=== PATIENT | female | born 1965 | race Caucasian/White ===

== ENCOUNTER 2018-08-19 11:55 | Observation (INO) | payer OTHER ==
[2018-08-19] MEDS ORDERED: Ondansetron 4 MG/2 ML SDV IVPUSH ONE (12:26)
[2018-08-19] MEDS ORDERED: Sodium Chloride 0.9% 1,000 ML IV ONE (12:26)
[2018-08-19] MEDS ORDERED: Prochlorperazine 10 MG/2 ML SDV IV ONE (12:28)
[2018-08-19 12:56] LABS: CHLORIDE,CL 97 mmol/L (98-107); SODIUM,NA 137 mmol/L (136-145)
[2018-08-19 13:01] LABS: ANION GAP 20.6 mmol/L (10-20)
--- NOTE | 2018-08-19 13:12 | CR ---
[id number] RAD/RAD Abd Flat and Upright 2V EXAM: RAD Abd Flat and Upright 2V INDICATION: ABDOMINAL PAIN. COMPARISON: None. DISCUSSION: Left ureteral stent in place. No abnormal opacities adjacent to the stent. Multiple vascular calcifications in the pelvis. Postsurgical change in the right upper quadrant. Surgical clip left of midline at the level of L3-4, nonspecific and possibly a dropped clip from prior cholecystectomy. Unobstructed bowel gas pattern. No pneumatosis or pneumoperitoneum. IMPRESSION: As above. Nehemiah Boone MD 08/19/18 [id number] Thank you for allowing us to participate in the care of your patient.
[2018-08-19] MEDS ORDERED: Sodium Chloride 0.9% with KCl 1,000 ML IV SCH (13:45)
[2018-08-19] MEDS ORDERED: Prochlorperazine 5 MG Tab PO PRN (13:45)
[2018-08-19] MEDS ORDERED: Ondansetron 4 MG/2 ML SDV IVPUSH PRN (13:45)
[2018-08-19] MEDS ORDERED: Acetaminophen 500 MG Tab PO PRN (13:54)
[2018-08-19] MEDS ORDERED: Loperamide 2 MG Cap PO PRN (13:54)
[2018-08-19] MEDS ORDERED: Ibuprofen 200 MG Tab PO PRN (14:01)
--- NOTE | 2018-08-19 14:09 | EDM.PDOC ---
ED HPI GENERAL MEDICAL PROBLEM - General Chief Complaint: Gastrointestinal Problem Stated Complaint: NAUSEA,WEAK Time Seen by Provider: 08/19/18 12:00 Source of Information: Reports: Patient History Limitations: Reports: No Limitations - History of Present Illness INITIAL COMMENTS - FREE TEXT/NARRATIVE: PtKevin presents to ER with complaints of severe nausea, vomiting, and diarrhea since having chemotherapy last week for metastatic colon CA. She states that she has it every 2 weeks, and is due to have it again next Sunday. She states that she is profoundly weak, fatigued, and nauseated. She has been taking oral compazine and zofran ODT. She has also been taking loperamine for diarrhea. She denies any fever or chills. No chest pain or shortness of breath. She denies any focal abdominal pain and complains of diffuse GI discomfort from nausea and vomiting. Dominique Perrin is the patient's PCP. Onset Date: 08/12/18 Duration: Constant Location: Reports: Abdomen, Generalized Quality: Reports: Dull Associated Symptoms: Reports: Malaise, Nausea/Vomiting, Weakness. Denies: Fever /Chills, Rash Lower Abdomen Pain Score (Numeric/FACES): 6 - Related Data Allergies Allergy/AdvReac Type Severity Reaction Status Date / Time shellfish derived Allergy Severe Anaphylactic Verified 08/19/18 13:29 Shock meperidine [From Demerol] AdvReac Nausea Verified 08/19/18 13:27 morphine AdvReac Vomiting Verified 08/19/18 13:29 oxycodone AdvReac Indigestion Verified 08/19/18 13:27 Home Meds: Home Meds Acetaminophen 1,000 mg PO Q6HR PRN 08/19/18 [History] DULoxetine [Cymbalta] 60 mg PO DAILY 08/19/18 [History] Ibuprofen [Advil] 200 - 400 mg PO Q6HR PRN 08/19/18 [History] Loperamide [Imodium] 4 mg PO Q6H PRN 08/19/18 [History] Ondansetron [Zofran ODT] 8 mg PO Q8HR PRN 08/19/18 [History] Prochlorperazine Maleate [Compazine] 10 mg PO Q6HR PRN 08/19/18 [History] Past Medical History Cardiovascular History: Reports: SOB on Exertion Respiratory History: Reports: Asthma Gastrointestinal History: Reports: Other (See Below) Other Gastrointestinal History: Upper abdominal pain. Colon cancer stage 3 Genitourinary History: Reports: Other (See Below) Other Genitourinary History: Obstruction of left ureter Neurological History: Reports: Other (See Below) Other Neuro History: Chemo induced neuropathy Psychiatric History: Reports: Anxiety Endocrine/Metabolic History: Reports: Other (See Below) Other Endocrine/Metabolic History: Hypomagnesemia Hematologic History: Reports: Iron Deficiency Oncologic (Cancer) History: Reports: Colon, Metastatic Social & Family History - Family History Family Medical History: Unobtainable - Tobacco Use Smoking Status *Q: Former Smoker Years of Tobacco use: 15 Used Tobacco, but Quit: Yes Month/Year Tobacco Last Used: 1997 Second Hand Smoke Exposure: No - Caffeine Use Caffeine Use: Reports: Coffee, Soda - Recreational Drug Use Recreational Drug Use: No ED ROS GENERAL - Review of Systems Review Of Systems: See Below Constitutional: Reports: Malaise, Weakness, Fatigue, Decreased Appetite HEENT: Reports: No Symptoms Respiratory: Reports: No Symptoms Cardiovascular: Reports: No Symptoms Endocrine: Reports: No Symptoms GI/Abdominal: Reports: Anorexia, Diarrhea, Decreased Appetite, Nausea, Vomiting. Denies: Abdominal Pain, Black Stool, Bloody Stool, Difficulty Swallowing, Hematemesis, Hematochezia, Melena : Reports: No Symptoms Musculoskeletal: Reports: Muscle Pain Skin: Reports: Pallor Neurological: Reports: No Symptoms Psychiatric: Reports: No Symptoms Hematologic/Lymphatic: Reports: No Symptoms ED EXAM, GENERAL - Physical Exam Exam: See Below Exam Limited By: No Limitations General Appearance: Alert, WD/WN, No Apparent Distress Eye Exam: Bilateral Eye: EOMI, PERRL Nose: Normal Inspection, Normal Mucosa Throat/Mouth: Normal Inspection, Normal Lips, Normal Teeth, Normal Gums, Normal Oropharynx, Normal Voice, No Airway Compromise Head: Atraumatic, Normocephalic Neck: Normal Inspection, Supple, Non-Tender, Full Range of Motion Respiratory/Chest: No Respiratory Distress, Lungs Clear, Normal Breath Sounds, No Accessory Muscle Use, Chest Non-Tender Cardiovascular: Normal Peripheral Pulses, Regular Rate, Rhythm, No Edema, No Gallop, No JVD, No Murmur Peripheral Pulses: 4+: Radial (L) GI/Abdominal: Normal Bowel Sounds, Soft, Non-Tender, No Organomegaly, No Distention, No Mass (Female) Exam: Deferred Rectal (Female) Exam: Deferred Back Exam: Normal Inspection, Full Range of Motion Extremities: Normal Inspection, Normal Range of Motion, Non-Tender, No Pedal Edema, Normal Capillary Refill Neurological: Alert, Oriented, CN II-XII Intact, Normal Cognition, Normal Gait, Normal Reflexes, No Motor/Sensory Deficits Psychiatric: Normal Affect, Normal Mood Skin Exam: Warm, Dry, Intact, No Rash, Pallor Lymphatic: No Adenopathy Course - Vital Signs Last Recorded V/S: Last Vital Signs Temp 35.7 C 08/19/18 12:00 Pulse 121 H 08/19/18 12:00 Resp 20 08/19/18 12:00 BP 122/88 08/19/18 12:00 Pulse Ox 97 08/19/18 12:00 - Orders/Labs/Meds Orders: Active Orders 24 hr Category Date Time Status Implanted Port Access [RC] 08,20 Care 08/19/18 12:25 Active CULTURE BLOOD [BC] Stat Lab 08/19/18 12:25 Ordered CULTURE BLOOD [BC] Stat Lab 08/19/18 12:25 Ordered Blood Culture x2 Reflex Set [OM.PC] Stat Oth 08/19/18 12:25 Ordered Medication Orders Acetaminophen (Tylenol Extra Strength) 1,000 mg PO Q6HR PRN PRN Reason: Pain Duloxetine HCl (Cymbalta) 60 mg PO DAILY [facility]OS[facility] Enoxaparin Sodium (Lovenox) 40 mg SUBCUT BEDTIME [facility] Potassium Chloride/Sodium Chloride (Normal Saline With 40 Meq Kcl) 1,000 mls @ 250 mls/hr IV ASDIRECTED [facility] Ibuprofen (Motrin) 400 mg PO Q4H PRN PRN Reason: Pain/Fever Loperamide HCl (Imodium) 4 mg PO Q6H PRN PRN Reason: Diarrhea Ondansetron HCl (Zofran) 4 mg IVPUSH Q6H PRN PRN Reason: Nausea Prochlorperazine Maleate (Compazine) 5 mg PO Q6H PRN PRN Reason: Nausea/Vomiting Labs: Laboratory Tests 08/19/18 08/19/18 08/19/18 Range/Units 12:20 12:20 12:20 WBC 4.4 (4.0-10.0) x10^3/uL RBC 5.20 (4.00-5.50) x10^6/uL Hgb 15.5 D (12.0-16.0) g/dL Hct 44.1 (33.0-47.0) % MCV 84.8 (78.0-93.0) fL MCH 29.8 (26.0-32.0) pg MCHC 35.1 (32.0-36.0) g/dL RDW Coeff of Myranda 14.6 (10.0-15.0) % Plt Count 353 (130-400) x10^3/uL Neut % (Auto) 55.1 (50.0-80.0) % Lymph % (Auto) 37.8 (25.0-50.0) % [place] % (Auto) 3.6 (2.0-11.0) % Eos % (Auto) 3.0 (0.0-4.0) % Baso % (Auto) 0.5 (0.2-1.2) % PT 11.0 (10.0-12.8) SEC INR 1.0 L (2.0-3.5) Sodium 137 (136-145) mmol/L Potassium 2.6 L* (3.5-5.1) mmol/L Chloride 97 L (98-107) mmol/L Carbon Dioxide 22 (21-32) mmol/L Anion Gap 20.6 H (10-20) mmol/L BUN 45 H (7-18) mg/dL Creatinine 1.8 H (0.55-1.02) mg/dL Est Cr Clr Drug Dosing TNP Estimated GFR (MDRD) 30 Glucose 184 H (74-106) mg/dL Lactic Acid (0.4-2.0) mmol/L Calcium 9.2 (8.5-10.1) mg/dL Corrected Calcium 8.88 (8.5-10.1) mg/dL Phosphorus 4.3 (2.6-4.7) mg/dL Magnesium 2.3 (1.8-2.4) mg/dL Total Bilirubin 1.2 H (0.2-1.0) mg/dL AST 26 (15-37) U/L ALT 48 (14-59) U/L Alkaline Phosphatase 138 H (46-116) U/L C-Reactive Protein 0.9 (<=0.9) mg/dL Total Protein 8.9 H (6.4-8.2) g/dL Albumin 4.4 (3.4-5.0) g/dL Globulin 4.5 Albumin/Globulin Ratio 0.98 Amylase 307 H (25-115) U/L 08/19/18 Range/Units 12:20 WBC (4.0-10.0) x10^3/uL RBC (4.00-5.50) x10^6/uL Hgb (12.0-16.0) g/dL Hct (33.0-47.0) % MCV (78.0-93.0) fL MCH (26.0-32.0) pg MCHC (32.0-36.0) g/dL RDW Coeff of Myranda (10.0-15.0) % Plt Count (130-400) x10^3/uL Neut % (Auto) (50.0-80.0) % Lymph % (Auto) (25.0-50.0) % [place] % (Auto) (2.0-11.0) % Eos % (Auto) (0.0-4.0) % Baso % (Auto) (0.2-1.2) % PT (10.0-12.8) SEC INR (2.0-3.5) Sodium (136-145) mmol/L Potassium (3.5-5.1) mmol/L Chloride (98-107) mmol/L Carbon Dioxide (21-32) mmol/L Anion Gap (10-20) mmol/L BUN (7-18) mg/dL Creatinine (0.55-1.02) mg/dL Est Cr Clr Drug Dosing Estimated GFR (MDRD) Glucose (74-106) mg/dL Lactic Acid 4.8 H* (0.4-2.0) mmol/L Calcium (8.5-10.1) mg/dL Corrected Calcium (8.5-10.1) mg/dL Phosphorus (2.6-4.7) mg/dL Magnesium (1.8-2.4) mg/dL Total Bilirubin (0.2-1.0) mg/dL AST (15-37) U/L ALT (14-59) U/L Alkaline Phosphatase (46-116) U/L C-Reactive Protein (<=0.9) mg/dL Total Protein (6.4-8.2) g/dL Albumin (3.4-5.0) g/dL Globulin Albumin/Globulin Ratio Amylase (25-115) U/L Meds: Medications Generic Name Dose Route Start Last Admin Trade Name Freq PRN Reason Stop Dose Admin Acetaminophen 1,000 mg 08/19/18 13:54 Tylenol Extra Strength PO Q6HR PRN Pain Duloxetine HCl 60 mg 08/20/18 08:00 Cymbalta PO DAILY REPLACED BY [facility] Enoxaparin Sodium 40 mg 08/19/18 20:00 Lovenox SUBCUT BEDTIME REPLACED BY [facility] Potassium Chloride/Sodium Chloride 1,000 mls @ 250 mls/hr 08/19/18 13:45 Normal Saline With 40 Meq Kcl IV ASDIRECTED REPLACED BY [facility] Ibuprofen 400 mg 08/19/18 14:01 Motrin PO Q4H PRN Pain/Fever Loperamide HCl 4 mg 08/19/18 13:54 Imodium PO Q6H PRN Diarrhea Ondansetron HCl 4 mg 08/19/18 13:45 Zofran IVPUSH Q6H PRN Nausea Prochlorperazine Maleate 5 mg 08/19/18 13:45 Compazine PO Q6H PRN Nausea/Vomiting Discontinued Medications Generic Name Dose Route Start Last Admin Trade Name Oliverioq PRN Reason Stop Dose Admin Sodium Chloride 1,000 mls @ 1,000 mls/hr 08/19/18 12:26 08/19/18 12:25 Normal Saline IV 08/19/18 13:25 1,000 mls/hr .BOLUS ONE Administration Ondansetron HCl 4 mg 08/19/18 12:26 08/19/18 12:52 Zofran IVPUSH 08/19/18 12:27 4 mg ONETIME ONE Administration Prochlorperazine Edisylate 5 mg 08/19/18 12:28 08/19/18 12:49 Compazine IV 08/19/18 12:29 5 mg ONETIME ONE Administration - Radiology Interpretation Free Text/Narrative:: F/U abdominal series obtained no obstructive process or obvious ileus noted. Departure - Departure Time of Disposition: 13:30 Disposition: Refer to Observation Clinical Impression: Chemotherapy-induced nausea and vomiting, Dehydration, Hypokalemia, gastrointestinal losses, AYESHA (acute kidney injury), Prerenal azotemia - Discharge Information - Problem List Review Problem List Initiated/Reviewed/Updated: Yes - My Orders Last 24 Hours: My Active Orders 08/19/18 12:25 Implanted Port Access [RC] 08,20 CULTURE BLOOD [BC] Stat CULTURE BLOOD [BC] Stat Blood Culture x2 Reflex Set [OM.PC] Stat - Assessment/Plan Admission H&P: Please use this note as an admission H&P Last 24 Hours: My Active Orders 08/19/18 12:25 Implanted Port Access [RC] 08,20 CULTURE BLOOD [BC] Stat CULTURE BLOOD [BC] Stat Blood Culture x2 Reflex Set [OM.PC] Stat Plan: Pt. appears quite ill and uncomfortable. Her lactate level is elevated likely secondary to the dehydration and decreased tissue perfusion. Will hold antibiotics at this time as she is afebrile and has no other symptoms of infection. Will trend her lactate in 6 hours. Repeat BMP in 6 hours as well. Pt. was given a liter of NS in ER. She will be started on NS with 40meq KCL at 250ml/hr. She will be kept on clear liquids today. Continue zofran and compazine IV for nausea/vomiting. Pt. is sensitive to opiates. She has been taking ibuprofen for pain at home. Will continue this as needed for now. Start lovenox 30mg QD for DVT prophylaxis (renally adjusted) Pt. is a code 1. Her [id number] is Nestor Lopez [facility] who is covering the ER tonight. Will discuss case with him. Likely he will want me to be contacted for orders tonight which is fine. I did discuss the case with Dr. Linares and she will assume care in the AM if she has not sufficiently improved enough for discharge. All questions were answered.
[2018-08-19 18:20] LABS: ANION GAP 14.4 mmol/L (10-20)
[2018-08-19] MEDS: Dextrose 5%-0.9% NaCl with KCl 1,000 ML IV SCH (19:34)
[2018-08-19] MEDS ORDERED: Enoxaparin 40 MG/0.4 ML Syringe SUBCUT SCH (20:00)
[2018-08-20] MEDS: Dextrose 5%-0.9% NaCl with KCl 1,000 ML IV SCH ×2 (03:27→11:38)
--- NOTE | 2018-08-20 07:28 | PCM.PN ---
- General Info Date of Service: 08/20/18 Admission Dx/Problem (Free Text): Pt. states that she is feeling much better. She has been tolerating clear liquid since midnight. She did vomit after consuming a large amount of water and juice last evening but has been OK since then. No fever or chills. No chest pain or shortness of breath. Nausea and vomiting has been controlled with Zofran. Denies any recurrent diarrhea. No skin rashes. Denies any headache. She has not been complaining of any pain. She has been able to get up to the bathroom on her own. Functional Status: Reports: Pain Controlled - Review of Systems General: Reports: No Symptoms HEENT: Reports: No Symptoms Pulmonary: Reports: No Symptoms Cardiovascular: Reports: No Symptoms Gastrointestinal: Reports: No Symptoms Genitourinary: Reports: No Symptoms Musculoskeletal: Reports: No Symptoms Skin: Reports: No Symptoms Neurological: Reports: No Symptoms Psychiatric: Reports: No Symptoms - Patient Data Vitals - Most Recent: Last Vital Signs Temp 36.9 C 08/20/18 06:00 Pulse 71 08/20/18 06:00 Resp 16 08/20/18 06:00 BP 88/56 L 08/20/18 06:00 Pulse Ox 98 08/20/18 06:00 Weight - Most Recent: 78.018 kg I&O - Last 24 Hours: Intake & Output 08/19/18 08/20/18 08/20/18 22:59 06:59 14:59 Intake Total 1000 Output Total 1000 Balance 0 Lab Results Last 24 Hours: Laboratory Results - last 24 hr 08/19/18 08/19/18 08/19/18 Range/Units 12:20 12:20 12:20 WBC 4.4 (4.0-10.0) x10^3/uL RBC 5.20 (4.00-5.50) x10^6/uL Hgb 15.5 D (12.0-16.0) g/dL Hct 44.1 (33.0-47.0) % MCV 84.8 (78.0-93.0) fL MCH 29.8 (26.0-32.0) pg MCHC 35.1 (32.0-36.0) g/dL RDW Coeff of Myranda 14.6 (10.0-15.0) % Plt Count 353 (130-400) x10^3/uL Neut % (Auto) 55.1 (50.0-80.0) % Lymph % (Auto) 37.8 (25.0-50.0) % [place] % (Auto) 3.6 (2.0-11.0) % Eos % (Auto) 3.0 (0.0-4.0) % Baso % (Auto) 0.5 (0.2-1.2) % PT 11.0 (10.0-12.8) SEC INR 1.0 L (2.0-3.5) Sodium 137 (136-145) mmol/L Potassium 2.6 L* (3.5-5.1) mmol/L Chloride 97 L (98-107) mmol/L Carbon Dioxide 22 (21-32) mmol/L Anion Gap 20.6 H (10-20) mmol/L BUN 45 H (7-18) mg/dL Creatinine 1.8 H (0.55-1.02) mg/dL Est Cr Clr Drug Dosing TNP Estimated GFR (MDRD) 30 Glucose 184 H (74-106) mg/dL Lactic Acid (0.4-2.0) mmol/L Calcium 9.2 (8.5-10.1) mg/dL Corrected Calcium 8.88 (8.5-10.1) mg/dL Phosphorus 4.3 (2.6-4.7) mg/dL Magnesium 2.3 (1.8-2.4) mg/dL Total Bilirubin 1.2 H (0.2-1.0) mg/dL AST 26 (15-37) U/L ALT 48 (14-59) U/L Alkaline Phosphatase 138 H (46-116) U/L C-Reactive Protein 0.9 (<=0.9) mg/dL Total Protein 8.9 H (6.4-8.2) g/dL Albumin 4.4 (3.4-5.0) g/dL Globulin 4.5 Albumin/Globulin Ratio 0.98 Amylase 307 H (25-115) U/L 08/19/18 08/19/18 08/19/18 Range/Units 12:20 17:48 17:48 WBC (4.0-10.0) x10^3/uL RBC (4.00-5.50) x10^6/uL Hgb (12.0-16.0) g/dL Hct (33.0-47.0) % MCV (78.0-93.0) fL MCH (26.0-32.0) pg MCHC (32.0-36.0) g/dL RDW Coeff of Myranda (10.0-15.0) % Plt Count (130-400) x10^3/uL Neut % (Auto) (50.0-80.0) % Lymph % (Auto) (25.0-50.0) % [place] % (Auto) (2.0-11.0) % Eos % (Auto) (0.0-4.0) % Baso % (Auto) (0.2-1.2) % PT (10.0-12.8) SEC INR (2.0-3.5) Sodium 140 (136-145) mmol/L Potassium 3.4 L (3.5-5.1) mmol/L Chloride 105 (98-107) mmol/L Carbon Dioxide 24 (21-32) mmol/L Anion Gap 14.4 (10-20) mmol/L BUN 34 H (7-18) mg/dL Creatinine 1.2 H (0.55-1.02) mg/dL Est Cr Clr Drug Dosing 51.92 Estimated GFR (MDRD) 47 Glucose 99 (74-106) mg/dL Lactic Acid 4.8 H* 1.1 (0.4-2.0) mmol/L Calcium 8.2 L (8.5-10.1) mg/dL Corrected Calcium (8.5-10.1) mg/dL Phosphorus (2.6-4.7) mg/dL Magnesium (1.8-2.4) mg/dL Total Bilirubin (0.2-1.0) mg/dL AST (15-37) U/L ALT (14-59) U/L Alkaline Phosphatase (46-116) U/L C-Reactive Protein (<=0.9) mg/dL Total Protein (6.4-8.2) g/dL Albumin (3.4-5.0) g/dL Globulin Albumin/Globulin Ratio Amylase (25-115) U/L Med Orders - Current: Current Medications Acetaminophen (Tylenol Extra Strength) 1,000 mg PO Q6HR PRN PRN Reason: Pain Duloxetine HCl (Cymbalta) 60 mg PO DAILY [facility] Enoxaparin Sodium (Lovenox) 40 mg SUBCUT BEDTIME [facility] Last Admin: 08/19/18 19:42 Dose: 40 mg Potassium Chloride/Dextrose/Sod Cl (D5 Ns With 20 Meq Kcl) 1,000 mls @ 125 mls/ hr IV ASDIRECTED [facility] Last Admin: 08/20/18 03:27 Dose: 125 mls/hr Ibuprofen (Motrin) 400 mg PO Q4H PRN PRN Reason: Pain/Fever Loperamide HCl (Imodium) 4 mg PO Q6H PRN PRN Reason: Diarrhea Ondansetron HCl (Zofran) 4 mg IVPUSH Q6H PRN PRN Reason: Nausea Last Admin: 08/19/18 21:45 Dose: 4 mg Prochlorperazine Maleate (Compazine) 5 mg PO Q6H PRN PRN Reason: Nausea/Vomiting Discontinued Medications Sodium Chloride (Normal Saline) 1,000 mls @ 1,000 mls/hr IV .BOLUS ONE Stop: 08/19/18 13:25 Last Admin: 08/19/18 12:25 Dose: 1,000 mls/hr Potassium Chloride/Sodium Chloride (Normal Saline With 40 Meq Kcl) 1,000 mls @ 250 [facility] Admin: 08/19/18 14:30 Dose: 250 mls/hr Ondansetron HCl (Zofran) 4 mg IVPUSH ONETIME ONE Stop: 08/19/18 12:27 Last Admin: 08/19/18 12:52 Dose: 4 mg Prochlorperazine Edisylate (Compazine) 5 mg IV ONETIME ONE Stop: 08/19/18 12:29 Last Admin: 08/19/18 12:49 Dose: 5 mg - Exam General: Alert, Oriented Lungs: Clear to Auscultation, Normal Respiratory Effort Cardiovascular: Regular Rate, Regular Rhythm GI/Abdominal Exam: Normal Bowel Sounds, Soft, Non-Tender, No Organomegaly, No Distention, No Mass (Female) Exam: Deferred Back Exam: Normal Inspection, Full Range of Motion Extremities: Normal Inspection, Normal Range of Motion, Non-Tender, No Pedal Edema, Normal Capillary Refill Peripheral Pulses: 4+: Radial (L) Skin: Warm, Dry, Intact Neurological: No New Focal Deficit Psy/Mental Status: Alert, Normal Affect, Normal Mood - Problem List Review Problem List Initiated/Reviewed/Updated: Yes - My Orders Last 24 Hours: My Active Orders 08/19/18 12:25 Implanted Port Access [RC] 08,20 CULTURE BLOOD [BC] Stat CULTURE BLOOD [BC] Stat Blood Culture x2 Reflex Set [OM.PC] Stat 08/19/18 13:10 Patient Status [ADT] Routine 08/19/18 13:43 Intake and Output [RC] 06,18 Up With Assistance [RC] 08,20 Vital Signs [RC] 06,10,14,18,22,02 Code Status [Resuscitation Status] Routine 08/19/18 13:45 Ondansetron [Zofran] 4 mg IVPUSH Q6H PRN Prochlorperazine [Compazine] 5 mg PO Q6H PRN 08/19/18 13:54 Acetaminophen [Tylenol Extra Strength] 1,000 mg PO Q6HR PRN Loperamide [Imodium] 4 mg PO Q6H PRN 08/19/18 14:01 Ibuprofen [Motrin] 400 mg PO Q4H PRN 08/19/18 18:45 Dextrose 5%-0.9% NaCl with KCl [D5 NS with 20 mEq KCl] 1,000 ml IV ASDIRECTED 08/19/18 20:00 Enoxaparin [Lovenox] 40 mg SUBCUT BEDTIME 08/19/18 Dinner Clear Liquid Diet [DIET] 08/20/18 05:11 AMYLASE [CHEM] AM COMPREHENSIVE METABOLIC PN,CMP [CHEM] AM LACTIC ACID [CHEM] AM LIPASE [CHEM] AM 08/20/18 07:00 CBC W/O DIFF,HEMOGRAM [HEME] Q3D 08/20/18 08:00 DULoxetine [Cymbalta] 60 mg PO DAILY 08/20/18 Breakfast Full Liquid Diet [DIET] 08/23/18 07:00 CBC W/O DIFF,HEMOGRAM [HEME] Q3D 08/26/18 07:00 CBC W/O DIFF,HEMOGRAM [HEME] Q3D 08/29/18 07:00 CBC W/O DIFF,HEMOGRAM [HEME] Q3D 09/01/18 07:00 CBC W/O DIFF,HEMOGRAM [HEME] Q3D 09/04/18 07:00 CBC W/O DIFF,HEMOGRAM [HEME] Q3D 09/07/18 07:00 CBC W/O DIFF,HEMOGRAM [HEME] Q3D
[2018-08-20 07:53] LABS: ANION GAP 13.7 mmol/L (10-20)
[2018-08-20] MEDS ORDERED: DULoxetine 60 MG Cap PO SCH (08:00)
[2018-08-20 14:25] VITALS: BP 115/64
[2018-08-20] MEDS ORDERED: Loperamide 2 MG Cap PO SCH (18:00)
--- NOTE | 2018-08-20 18:37 | PCM.DCSUM1 ---
Discharge Summary - Hospital Course Free Text/Narrative:: Pt. was admitted the afternoon of 08-19-18 with dehydration secondary to vomiting and diarrhea with AYESHA secondary to chemotherapy. She was initially fluid resuscitated with IV NS and then started on maintenance D5 NS with KCL, as she was quite hypokalemic. Her labs have improved significantly. Her diet was advanced thoughout the day today and she is now tolerating solid foods. Her lactic acid continued to be elevated this AM. It was checked again this afternoon and it was down to 1.9. Potassium level and kidney function has normalized as well. Pt. states that she feels well enough to be discharged. Pt. continues to have diarrhea. She was not receiving her PRN loperamide apparently so this was started. Pt. was advised to continue using the loperamide until her stools normalize. Diagnosis: Stroke: No - Discharge Data Discharge Date: 08/20/18 Discharge Disposition: Home, Self-Care 01 Condition: Good - Discharge Diagnosis/Problem(s) (1) AYESHA (acute kidney injury) SNOMED Code(s): 18797615, 86875888 ICD Code: N17.9 - ACUTE KIDNEY FAILURE, UNSPECIFIED Status: Acute Current Visit: Yes (2) Chemotherapy-induced nausea and vomiting SNOMED Code(s): 37036465 ICD Code: R11.2 - NAUSEA WITH VOMITING, UNSPECIFIED; T45.1X5A - ADVERSE EFFECT OF ANTINEOPLASTIC AND IMMUNOSUP DRUGS, INIT Status: Acute Current Visit: Yes (3) Dehydration SNOMED Code(s): 17653575 ICD Code: E86.0 - DEHYDRATION Status: Acute Current Visit: Yes (4) Hypokalemia, gastrointestinal losses SNOMED Code(s): 45316437 ICD Code: E87.6 - HYPOKALEMIA Status: Acute Current Visit: Yes (5) Prerenal azotemia SNOMED Code(s): 027457155 ICD Code: R79.89 - OTHER SPECIFIED ABNORMAL FINDINGS OF BLOOD CHEMISTRY Status: Acute Current Visit: Yes - Patient Instructions Diet: Regular Diet as Tolerated Activity: As Tolerated Driving: Do Not Drive Showering/Bathing: May Shower - Discharge Plan Home Medications: Home Meds Acetaminophen 1,000 mg PO Q6HR PRN MDD 4000 mg per day 08/19/18 [History] DULoxetine [Cymbalta] 60 mg PO DAILY 08/19/18 [History] Ibuprofen [Advil] 200 - 400 mg PO Q6HR PRN 08/19/18 [History] Loperamide [Imodium] 4 mg PO Q6H PRN MDD 16 mg per day 08/19/18 [History] Ondansetron [Zofran ODT] 8 mg PO Q8HR PRN 08/19/18 [History] Prochlorperazine Maleate [Compazine] 10 mg PO Q6HR PRN 08/19/18 [History] Patient Handouts: Dehydration, Adult, [id number] Forms: ED Department Discharge Referrals: Anamika Perrin, FORECLOSURE SPECIALIST [Primary Care Provider] - - Discharge Summary/Plan Comment DC Time >30 min.: Yes Discharge Summary/Plan Comment: Continue with current medications. Follow-up in clinic with oncology in 10-14 days. Return to ER if you are unable to hold down fluids. - Patient Data Vitals - Most Recent: Last Vital Signs Temp 36.5 C 08/20/18 14:00 Pulse 78 08/20/18 14:00 Resp 18 08/20/18 14:00 BP 115/64 08/20/18 14:00 Pulse Ox 97 08/20/18 14:00 Weight - Most Recent: 78.018 kg I&O - Last 24 hours: Intake & Output 08/20/18 08/20/18 08/20/18 06:59 14:59 22:59 Intake Total 8253 828 4467 Balance 3720 349 6712 Lab Results - Last 24 hrs: Laboratory Results - last 24 hr 08/20/18 08/20/18 08/20/18 Range/Units 06:20 06:20 06:20 WBC 4.6 (4.0-10.0) x10^3/uL RBC 3.82 L (4.00-5.50) x10^6/uL Hgb 11.2 L D (12.0-16.0) g/dL Hct 33.6 (33.0-47.0) % MCV 88.0 D (78.0-93.0) fL MCH 29.3 (26.0-32.0) pg MCHC 33.3 (32.0-36.0) g/dL RDW Coeff of Myranda 14.3 (10.0-15.0) % Plt Count 226 D (130-400) x10^3/uL Sodium 143 (136-145) mmol/L Potassium 3.7 (3.5-5.1) mmol/L Chloride 109 H (98-107) mmol/L Carbon Dioxide 24 (21-32) mmol/L Anion Gap 13.7 (10-20) mmol/L BUN 20 H (7-18) mg/dL Creatinine 1.0 (0.55-1.02) mg/dL Est Cr Clr Drug Dosing 62.31 mL/min Estimated GFR (MDRD) 58 Glucose 134 H (74-106) mg/dL Lactic Acid 2.7 H* (0.4-2.0) mmol/L Calcium 8.5 (8.5-10.1) mg/dL Corrected Calcium 9.14 (8.5-10.1) mg/dL Total Bilirubin 0.9 (0.2-1.0) mg/dL AST 19 (15-37) U/L ALT 32 (14-59) U/L Alkaline Phosphatase 89 (46-116) U/L Total Protein 6.3 L (6.4-8.2) g/dL Albumin 3.2 L (3.4-5.0) g/dL Globulin 3.1 Albumin/Globulin Ratio 1.03 Amylase 129 H (25-115) U/L Lipase 589 H (73-393) U/L 08/20/18 Range/Units 17:36 WBC (4.0-10.0) x10^3/uL RBC (4.00-5.50) x10^6/uL Hgb (12.0-16.0) g/dL Hct (33.0-47.0) % MCV (78.0-93.0) fL MCH (26.0-32.0) pg MCHC (32.0-36.0) g/dL RDW Coeff of Myranda (10.0-15.0) % Plt Count (130-400) x10^3/uL Sodium (136-145) mmol/L Potassium (3.5-5.1) mmol/L Chloride (98-107) mmol/L Carbon Dioxide (21-32) mmol/L Anion Gap (10-20) mmol/L BUN (7-18) mg/dL Creatinine (0.55-1.02) mg/dL Est Cr Clr Drug Dosing mL/min Estimated GFR (MDRD) Glucose (74-106) mg/dL Lactic Acid 1.9 (0.4-2.0) mmol/L Calcium (8.5-10.1) mg/dL Corrected Calcium (8.5-10.1) mg/dL Total Bilirubin (0.2-1.0) mg/dL AST (15-37) U/L ALT (14-59) U/L Alkaline Phosphatase (46-116) U/L Total Protein (6.4-8.2) g/dL Albumin (3.4-5.0) g/dL Globulin Albumin/Globulin Ratio Amylase (25-115) U/L Lipase (73-393) U/L Med Orders - Current: Current Medications Acetaminophen (Tylenol Extra Strength) 1,000 mg PO Q6HR PRN PRN Reason: Pain Duloxetine HCl (Cymbalta) 60 mg PO DAILY [facility] Last Admin: 08/20/18 08:07 Dose: 60 mg Enoxaparin Sodium (Lovenox) 40 mg SUBCUT BEDTIME [facility] Last Admin: 08/19/18 19:42 Dose: 40 mg Potassium Chloride/Dextrose/Sod Cl (D5 Ns With 20 Meq Kcl) 1,000 mls @ 125 mls/ hr IV ASDIRECTED [facility] Last Admin: 08/20/18 11:38 Dose: 125 mls/hr Ibuprofen (Motrin) 400 mg PO Q4H PRN PRN Reason: Pain/Fever Loperamide HCl (Imodium) 4 mg PO Q6H [facility] Last Admin: 08/20/18 17:09 Dose: 4 mg Ondansetron HCl (Zofran) 4 mg IVPUSH Q6H PRN PRN Reason: Nausea Last Admin: 08/19/18 21:45 Dose: 4 mg Prochlorperazine Maleate (Compazine) 5 mg PO Q6H PRN PRN Reason: Nausea/Vomiting Discontinued Medications Sodium Chloride (Normal Saline) 1,000 mls @ 1,000 mls/hr IV .BOLUS ONE Stop: 08/19/18 13:25 Last Admin: 08/19/18 12:25 Dose: 1,000 mls/hr Potassium Chloride/Sodium Chloride (Normal Saline With 40 Meq Kcl) 1,000 mls @ 250 mls/hr IV ASDIRECTED [facility] Last Admin: 08/19/18 14:30 Dose: 250 mls/hr Loperamide HCl (Imodium) 4 mg PO Q6H PRN PRN Reason: Diarrhea Ondansetron HCl (Zofran) 4 mg IVPUSH ONETIME ONE Stop: 08/19/18 12:27 Last Admin: 08/19/18 12:52 Dose: 4 mg Prochlorperazine Edisylate (Compazine) 5 mg IV ONETIME ONE Stop: 08/19/18 12:29 Last Admin: 08/19/18 12:49 Dose: 5 mg
== END 2018-08-20 18:57 | disposition home or self-care (01) ==
LOC: VM.ED 11:55 → VM.MS 13:10
PROVIDERS: ADMIT Physician Assistant; ATTEND Physician Assistant
DX: R11.2 Nausea with vomiting, unspecified (principal); E86.0 Dehydration; T45.1X5A Adverse effect of antineoplastic and immunosuppressive drugs, initial encounter; N17.9 Acute kidney failure, unspecified; E87.6 Hypokalemia; R79.89 Other specified abnormal findings of blood chemistry; Z88.5 Allergy status to narcotic agent; Z91.013 Allergy to seafood
CPT/HCPCS: 36415; 74019; 80048; 80053; 82150; 83605; 83690; 83735; 84100; 85025; 85027; 85610; 86140; 87040; 96361; 96372; 96374; 96375; 96376; 99285; A9270; G0378; J0780; J1642; J1650; J2405; J3480; J7030

== ENCOUNTER 2018-09-06 21:15 | Emergency (ER) | payer OTHER ==
[2018-09-06] MEDS ORDERED: Sodium Chloride 0.9% 10 ML Syringe FLUSH PRN (21:26)
[2018-09-06] MEDS ORDERED: Prochlorperazine 10 MG/2 ML SDV IV ONE (21:26)
[2018-09-06] MEDS ORDERED: diphenhydrAMINE 50 MG/ML SDV IVPUSH ONE (21:27)
[2018-09-06] MEDS ORDERED: Lactated Ringers 1,000 ML IV ONE (21:27)
[2018-09-06 22:11] LABS: CHLORIDE,CL 100 mmol/L (98-107); SODIUM,NA 141 mmol/L (136-145)
[2018-09-06 22:12] LABS: ANION GAP 14.9 mmol/L (10-20)
[2018-09-06] MEDS ORDERED: NS + KCl 20mEq/L 1,000 ML IV SCH (22:30)
--- NOTE | 2018-09-07 07:22 | EDM.PDOC ---
ED HPI GENERAL MEDICAL PROBLEM - General Chief Complaint: Gastrointestinal Problem Stated Complaint: NAUSEATED AND DIARREA Time Seen by Provider: 09/06/18 21:20 Source of Information: Reports: Patient History Limitations: Reports: No Limitations - History of Present Illness INITIAL COMMENTS - FREE TEXT/NARRATIVE: Pt. presents to ER with chemotherapy induced nausea, vomiting, and diarrhea. Pt. states that she had her last chemotherapy session on Sunday. She states that she has been experiencing the symptoms since then. Pt. was admitted to our facility due to chemotherapy induced nausea, vomiting, dehydration, AYESHA and hypokalemia following her last chemo session (August 19). She denies any fever or chills. No chest pain or shortness of breath. Denies any focal abdominal discomfort. No rashes. Onset: Today Onset Date: 09/07/18 Location: Reports: Generalized Associated Symptoms: Reports: Nausea/Vomiting - Related Data Allergies Allergy/AdvReac Type Severity Reaction Status Date / Time shellfish derived Allergy Severe Anaphylactic Verified 09/07/18 00:29 Shock meperidine [From Demerol] AdvReac Nausea Verified 09/07/18 00:29 morphine AdvReac Vomiting Verified 09/07/18 00:29 oxycodone AdvReac Indigestion Verified 09/07/18 00:29 Home Meds: Home Meds Acetaminophen 1,000 mg PO Q6HR PRN MDD 4000 mg per day 08/19/18 [History] DULoxetine [Cymbalta] 60 mg PO DAILY 08/19/18 [History] Ibuprofen [Advil] 200 - 400 mg PO Q6HR PRN 08/19/18 [History] Loperamide [Imodium] 4 mg PO Q6H PRN MDD 16 mg per day 08/19/18 [History] Ondansetron [Zofran ODT] 8 mg PO Q8HR PRN 08/19/18 [History] Prochlorperazine Maleate [Compazine] 10 mg PO Q6HR PRN 08/19/18 [History] Ciprofloxacin HCl [Cipro] 500 mg PO BID 09/07/18 [History] Past Medical History Cardiovascular History: Reports: SOB on Exertion Respiratory History: Reports: Asthma Gastrointestinal History: Reports: Other (See Below) Other Gastrointestinal History: Upper abdominal pain. Colon cancer stage 3 Genitourinary History: Reports: Other (See Below) Other Genitourinary History: Obstruction of left ureter Neurological History: Reports: Other (See Below) Other Neuro History: Chemo induced neuropathy Psychiatric History: Reports: Anxiety Endocrine/Metabolic History: Reports: Other (See Below) Other Endocrine/Metabolic History: Hypomagnesemia Hematologic History: Reports: Iron Deficiency Oncologic (Cancer) History: Reports: Colon, Metastatic Social & Family History - Family History Family Medical History: Unobtainable - Caffeine Use Caffeine Use: Reports: Coffee, Soda ED ROS GENERAL - Review of Systems Review Of Systems: See Below Constitutional: Reports: No Symptoms HEENT: Reports: No Symptoms Respiratory: Reports: No Symptoms Cardiovascular: Reports: No Symptoms Endocrine: Reports: No Symptoms GI/Abdominal: Reports: Diarrhea, Vomiting : Reports: No Symptoms Musculoskeletal: Reports: No Symptoms Skin: Reports: No Symptoms Neurological: Reports: No Symptoms Psychiatric: Reports: No Symptoms Hematologic/Lymphatic: Reports: No Symptoms Immunologic: Reports: No Symptoms ED EXAM, GENERAL - Physical Exam Exam: See Below Exam Limited By: No Limitations General Appearance: Alert, WD/WN, No Apparent Distress Throat/Mouth: Normal Inspection, Normal Lips, Normal Teeth, Normal Gums, Normal Oropharynx, Normal Voice, No Airway Compromise Head: Atraumatic, Normocephalic Neck: Normal Inspection, Supple, Non-Tender, Full Range of Motion Respiratory/Chest: No Respiratory Distress, Lungs Clear, Normal Breath Sounds, No Accessory Muscle Use, Chest Non-Tender Cardiovascular: Normal Peripheral Pulses, Regular Rate, Rhythm, No Edema, No Gallop, No JVD, No Murmur, No Rub Peripheral Pulses: 4+: Radial (R) GI/Abdominal: Normal Bowel Sounds, Soft, Non-Tender, No Organomegaly, No Distention, No Abnormal Bruit, No Mass, Pelvis Stable (Female) Exam: Deferred Rectal (Female) Exam: Deferred Back Exam: Normal Inspection, Full Range of Motion Extremities: Normal Inspection, Normal Range of Motion, Non-Tender, No Pedal Edema, Normal Capillary Refill Neurological: Alert, Oriented, CN II-XII Intact, Normal Cognition, Normal Gait, Normal Reflexes, No Motor/Sensory Deficits Psychiatric: Normal Affect, Normal Mood Skin Exam: Warm, Dry, Intact, Normal Color, No Rash Lymphatic: No Adenopathy Course - Orders/Labs/Meds Orders: Active Orders 24 hr Category Date Time Status Implanted Port Access [RC] CONTINUOUS Care 09/06/18 21:29 Active Implanted Port De-Access [RC] ASDIRECTED Care 09/06/18 23:38 Active Labs: Laboratory Tests 09/06/18 09/06/18 09/06/18 Range/Units 21:45 21:45 21:45 WBC 9.8 (4.0-10.0) x10^3/uL RBC 4.81 (4.00-5.50) x10^6/uL Hgb 14.6 D (12.0-16.0) g/dL Hct 43.6 (33.0-47.0) % MCV 90.6 (78.0-93.0) fL MCH 30.4 (26.0-32.0) pg MCHC 33.5 (32.0-36.0) g/dL RDW Coeff of Myranda 15.2 H (10.0-15.0) % Plt Count 320 D (130-400) x10^3/uL Neut % (Auto) 79.7 (50.0-80.0) % Lymph % (Auto) 18.2 L (25.0-50.0) % Alpine % (Auto) 1.4 L (2.0-11.0) % Eos % (Auto) 0.4 (0.0-4.0) % Baso % (Auto) 0.3 (0.2-1.2) % PT 9.9 L (10.0-12.8) SEC INR 0.9 L (2.0-3.5) Sodium 141 (136-145) mmol/L Potassium 2.9 L* (3.5-5.1) mmol/L Chloride 100 (98-107) mmol/L Carbon Dioxide 29 (21-32) mmol/L Anion Gap 14.9 (10-20) mmol/L BUN 18 (7-18) mg/dL Creatinine 1.0 (0.55-1.02) mg/dL Est Cr Clr Drug Dosing TNP Estimated GFR (MDRD) 58 Glucose 116 H (74-106) mg/dL Calcium 9.6 (8.5-10.1) mg/dL Corrected Calcium 9.52 (8.5-10.1) mg/dL Total Bilirubin 1.8 H (0.2-1.0) mg/dL AST 26 (15-37) U/L ALT 54 (14-59) U/L Alkaline Phosphatase 135 H (46-116) U/L Total Protein 8.2 (6.4-8.2) g/dL Albumin 4.1 (3.4-5.0) g/dL Globulin 4.1 Albumin/Globulin Ratio 1.00 Meds: Medications Discontinued Medications Generic Name Dose Route Start Last Admin Trade Name Freq PRN Reason Stop Dose Admin Diphenhydramine HCl 50 mg 09/06/18 21:27 09/06/18 21:51 Benadryl IVPUSH 09/06/18 21:28 50 mg ONETIME ONE Administration Heparin Sodium (Porcine) 500 units 09/07/18 00:44 Heparin Lock Flush 100 Units/Ml IVPUSH ASDIRECTED PRN Keep Vein Open Lactated Ringer's 1,000 mls @ 1,000 mls/hr 09/06/18 21:27 09/06/18 21:49 Ringers, Lactated IV 09/06/18 22:26 1,000 mls/hr ONETIME ONE Administration Potassium Chloride/Sodium Chloride 1,000 mls @ 1,000 mls/hr 09/06/18 22:30 23:26 Normal Saline With 20 Meq Kcl IV 1,000 mls/hr ASDIRECTED JOSLYN Administration Prochlorperazine Edisylate 5 mg 09/06/18 21:26 09/06/18 21:50 Compazine IV 09/06/18 21:27 5 mg ONETIME ONE Administration Sodium Chloride 10 ml 09/06/18 21:26 Saline Flush FLUSH ASDIRECTED PRN Keep Vein Open Departure - Departure Time of Disposition: 01:40 Disposition: Home, Self-Care 01 Clinical Impression: Chemotherapy-induced nausea and vomiting, Hypokalemia, gastrointestinal losses , Dehydration - Discharge Information Instructions: Dehydration, Adult, [id number] Referrals: Anamika Perrin [employer] [Primary Care Provider] - Forms: ED Department Discharge Additional Instructions: Continue with current medications Return to ER if you are unable to hold down fluids Follow-up in clinic in 5-7 days - My Orders Last 24 Hours: My Active Orders 09/06/18 21:29 Implanted Port Access [RC] CONTINUOUS 09/06/18 23:38 Implanted Port De-Access [RC] ASDIRECTED - Assessment/Plan Last 24 Hours: My Active Orders 09/06/18 21:29 Implanted Port Access [RC] CONTINUOUS 09/06/18 23:38 Implanted Port De-Access [RC] ASDIRECTED Plan: Continue with current medications Return to ER if you are unable to hold down fluids Follow-up in clinic in 5-7 days
== END 2018-09-07 01:40 | disposition home or self-care (01) ==
LOC: VM.ED 21:15
DX: E87.6 Hypokalemia (principal); E86.0 Dehydration; R11.2 Nausea with vomiting, unspecified; T45.1X5A Adverse effect of antineoplastic and immunosuppressive drugs, initial encounter; Z91.013 Allergy to seafood; Z88.5 Allergy status to narcotic agent; Z88.8 Allergy status to other drugs, medicaments and biological substances
CPT/HCPCS: 80053; 85025; 85610; 96361; 96365; 96366; 96375; 99284-25; J0780; J1200; J3480; J7120

== ENCOUNTER 2021-03-09 17:17 | Emergency (ER) | payer MEDICARE ==
[2021-03-09] MEDS: Atropine 0.1 MG/ML 10 ML Syringe IVPUSH ONE ×2 (18:13→18:50)
[2021-03-09 18:34] LABS: PTT,PARTIAL THROMBOPLSTIN TIME 24.6 SEC (25.6-32.8)
[2021-03-09 18:43] LABS: CHLORIDE,CL 103 mmol/L (98-107); SODIUM,NA 142 mmol/L (136-145)
[2021-03-09 18:44] LABS: ANION GAP 18.6 mmol/L (5-15)
--- NOTE | 2021-03-09 18:48 | EDM.PDOC ---
ED HPI GENERAL MEDICAL PROBLEM - General Chief Complaint: General Stated Complaint: ALLERGIC REACTION Time Seen by Provider: 03/09/21 17:24 Source of Information: Reports: Patient History Limitations: Reports: No Limitations - History of Present Illness INITIAL COMMENTS - FREE TEXT/NARRATIVE: Patient comes in with complaints that she is diaphoretic, sob, left cheek is numb, chest pressure, dizzy after her chemo. States that they normally give adenosine, however the did not today. Reports these symptom started shortly after her treatment. She denies any confusion, left sided weakness, nausea/vomiting. Onset: Sudden Duration: Intermittent Location: Reports: Neck, Chest Severity: Moderate Associated Symptoms: Reports: Diaphoresis, Shortness of Breath, Weakness - Related Data Allergies Allergy/AdvReac Type Severity Reaction Status Date / Time shellfish derived Allergy Severe Anaphylactic Verified 03/09/21 18:27 Shock meperidine [From Demerol] AdvReac Nausea Verified 03/09/21 18:27 morphine AdvReac Vomiting Verified 03/09/21 18:27 oxycodone AdvReac Indigestion Verified 03/09/21 18:27 Home Meds: Home Meds Acetaminophen 1,000 mg PO Q6HR PRN MDD 4000 mg per day 08/19/18 [History] DULoxetine [Cymbalta] 60 mg PO DAILY 08/19/18 [History] Ibuprofen [Advil] 200 mg PO Q6HR PRN 08/19/18 [History] Ondansetron [Zofran ODT] 4 mg PO Q8HR PRN 08/19/18 [History] Prochlorperazine Maleate [Compazine] 10 mg PO Q6HR PRN 08/19/18 [History] ALPRAZolam [Xanax] 0.5 mg PO BID PRN 03/09/21 [History] Potassium Chloride [Klor-Con M20] 20 meq PO BID 03/09/21 [History] Scopolamine 1 each TD Q72H 03/09/21 [History] Past Medical History Cardiovascular History: Reports: SOB on Exertion Respiratory History: Reports: Asthma Gastrointestinal History: Reports: Other (See Below) Other Gastrointestinal History: Upper abdominal pain. Colon cancer stage 3 Genitourinary History: Reports: Other (See Below) Other Genitourinary History: Obstruction of left ureter Neurological History: Reports: Other (See Below) Other Neuro History: Chemo induced neuropathy Psychiatric History: Reports: Anxiety Endocrine/Metabolic History: Reports: Other (See Below) Other Endocrine/Metabolic History: Hypomagnesemia Hematologic History: Reports: Iron Deficiency Oncologic (Cancer) History: Reports: Colon, Metastatic Social & Family History - Family History Family Medical History: Unobtainable - Caffeine Use Caffeine Use: Reports: Coffee, Soda ED ROS GENERAL - Review of Systems Review Of Systems: See Below Constitutional: Reports: Diaphoresis HEENT: Reports: No Symptoms Respiratory: Reports: Shortness of Breath Cardiovascular: Reports: No Symptoms Endocrine: Reports: No Symptoms GI/Abdominal: Reports: No Symptoms : Reports: No Symptoms Musculoskeletal: Reports: No Symptoms Skin: Reports: No Symptoms Neurological: Reports: Dizziness, Numbness, Tingling Psychiatric: Reports: Anxiety Hematologic/Lymphatic: Reports: No Symptoms Immunologic: Reports: No Symptoms ED EXAM, GENERAL - Physical Exam Exam: See Below Exam Limited By: No Limitations General Appearance: Alert, WD/WN, No Apparent Distress Ears: Normal External Exam, Normal Canal, Hearing Grossly Normal, Normal TMs Ear Exam: Bilateral Ear: Auricle Normal, Canal Normal, TM normal Nose: Normal Inspection, Normal Mucosa, No Blood Throat/Mouth: Normal Inspection, Normal Lips, Normal Teeth, Normal Gums, Normal Oropharynx, Normal Voice, No Airway Compromise Head: Atraumatic, Normocephalic Neck: Normal Inspection, Supple, Non-Tender, Full Range of Motion Respiratory/Chest: No Respiratory Distress, Lungs Clear, Normal Breath Sounds, No Accessory Muscle Use, Chest Non-Tender Cardiovascular: Normal Peripheral Pulses, Regular Rate, Rhythm, No Edema, No Gallop, No JVD, No Murmur, No Rub GI/Abdominal: Normal Bowel Sounds, Soft, Non-Tender, No Organomegaly, No Distention, No Abnormal Bruit, No Mass Back Exam: Normal Inspection, Full Range of Motion, NT Extremities: Normal Inspection, Normal Range of Motion, Non-Tender, Normal Capillary Refill, No Pedal Edema Neurological: Alert, Oriented, CN II-XII Intact, Normal Cognition, Normal Gait, Normal Reflexes, No Motor/Sensory Deficits Psychiatric: Normal Affect, Normal Mood Skin Exam: Warm, Dry, Intact, Normal Color, No Rash Lymphatic: No Adenopathy Course - Vital Signs Last Recorded V/S: Last Vital Signs Temp 36.6 C 03/09/21 17:20 Pulse 102 H 03/09/21 19:00 Resp 16 03/09/21 19:00 BP 116/81 03/09/21 19:00 Pulse Ox 98 03/09/21 19:00 - Orders/Labs/Meds Labs: Laboratory Tests 03/09/21 03/09/21 03/09/21 Range/Units 17:56 17:56 17:56 WBC 5.6 (4.0-10.0) x10^3/uL RBC 4.13 (4.00-5.50) x10^6/uL Hgb 12.8 (12.0-16.0) g/dL Hct 37.2 (33.0-47.0) % MCV 90.1 (78.0-93.0) fL MCH 31.0 (26.0-32.0) pg MCHC 34.4 (32.0-36.0) g/dL RDW Coeff of Myranda 13.3 (10.0-15.0) % Plt Count 358 (130-400) x10^3/uL Add Manual Diff Yes Neutrophils % (Manual) 95 H (50-80) % Band Neutrophils % 1 (0-6) % Lymphocytes % (Manual) 2 L (25-50) % Reactive Lymphs % 1 H (0) % Monocytes % (Manual) 1 L (2-11) % Absolute Neutrophils 5.4 (1.8-7.7) x10^3/uL Lymphocytes # (Manual) 0.2 L (1.0-4.8) x10^3/uL Monocytes # (Manual) 0.1 (0.0-0.8) x10^3/uL Hypersegmented Neuts Few H Vacuolated Neuts Few Toxic Granulation Moderate Platelet Estimate Adequate Giant Platelets Rare H PT 10.4 (9.9-12.5) SEC INR 0.9 L (2.0-3.5) APTT 24.6 L (25.6-32.8) SEC Sodium 142 (136-145) mmol/L Potassium 3.6 (3.5-5.1) mmol/L Chloride 103 (98-107) mmol/L Carbon Dioxide 24 (21-32) mmol/L Anion Gap 18.6 H (5-15) mmol/L BUN 8 (7-18) mg/dL Creatinine 0.8 (0.55-1.02) mg/dL Est Cr Clr Drug Dosing 54.16 mL/min Estimated GFR (MDRD) > 60 Glucose 164 H (70-99) mg/dL Lactic Acid (0.4-2.0) mmol/L Calcium 9.7 (8.5-10.1) mg/dL Corrected Calcium 9.9 (8.5-10.1) mg/dL Magnesium 1.6 L (1.8-2.4) mg/dL Total Bilirubin 0.5 (0.2-1.0) mg/dL AST 13 L (15-37) U/L ALT 19 (14-59) U/L Alkaline Phosphatase 117 H (46-116) U/L Troponin I High Sens 5 (<=51) ng/L NT-Pro-B Natriuret Pep 185 H (<=125) pg/mL Total Protein 7.4 (6.4-8.2) g/dL Albumin 3.7 (3.4-5.0) g/dL Globulin 3.7 Albumin/Globulin Ratio 1.00 Procalcitonin (0.1-0.50) ng/mL 03/09/21 03/09/21 Range/Units 17:56 17:56 WBC (4.0-10.0) x10^3/uL RBC (4.00-5.50) x10^6/uL Hgb (12.0-16.0) g/dL Hct (33.0-47.0) % MCV (78.0-93.0) fL MCH (26.0-32.0) pg MCHC (32.0-36.0) g/dL RDW Coeff of Myranda (10.0-15.0) % Plt Count (130-400) x10^3/uL Add Manual Diff Neutrophils % (Manual) (50-80) % Band Neutrophils % (0-6) % Lymphocytes % (Manual) (25-50) % Reactive Lymphs % (0) % Monocytes % (Manual) (2-11) % Absolute Neutrophils (1.8-7.7) x10^3/uL Lymphocytes # (Manual) (1.0-4.8) x10^3/uL Monocytes # (Manual) (0.0-0.8) x10^3/uL Hypersegmented Neuts Vacuolated Neuts Toxic Granulation Platelet Estimate Giant Platelets PT (9.9-12.5) SEC INR (2.0-3.5) APTT (25.6-32.8) SEC Sodium (136-145) mmol/L Potassium (3.5-5.1) mmol/L Chloride (98-107) mmol/L Carbon Dioxide (21-32) mmol/L Anion Gap (5-15) mmol/L BUN (7-18) mg/dL Creatinine (0.55-1.02) mg/dL Est Cr Clr Drug Dosing mL/min Estimated GFR (MDRD) Glucose (70-99) mg/dL Lactic Acid 3.4 H* (0.4-2.0) mmol/L Calcium (8.5-10.1) mg/dL Corrected Calcium (8.5-10.1) mg/dL Magnesium (1.8-2.4) mg/dL Total Bilirubin (0.2-1.0) mg/dL AST (15-37) U/L ALT (14-59) U/L Alkaline Phosphatase (46-116) U/L Troponin I High Sens (<=51) ng/L NT-Pro-B Natriuret Pep (<=125) pg/mL Total Protein (6.4-8.2) g/dL Albumin (3.4-5.0) g/dL Globulin Albumin/Globulin Ratio Procalcitonin <0.05 L (0.1-0.50) ng/mL Meds: Medications Discontinued Medications Generic Name Dose Route Start Last Admin Trade Name Heike PRN Reason Stop Dose Admin Atropine Sulfate 0.25 mg 03/09/21 18:00 03/09/21 18:13 Atropine 0.1 Mg/Ml 10 Ml Syringe IVPUSH 03/09/21 18:01 0.25 mg ONETIME ONE Administration Atropine Sulfate 0.25 mg 03/09/21 18:49 03/09/21 18:50 Atropine 0.1 Mg/Ml 10 Ml Syringe IVPUSH 03/09/21 18:50 0.25 mg ONETIME ONE Administration Sodium Chloride 1,000 mls @ 999 mls/hr 03/09/21 18:49 03/09/21 18:50 Normal Saline IV 03/09/21 19:49 999 mls/hr ONETIME ONE Administration - Radiology Interpretation Free Text/Narrative:: Chest x-ray normal Head CT negative for acute ischemia/hemorrhage Departure - Departure Time of Disposition: 21:37 Disposition: Home, Self-Care 01 Preliminary Cause of *Q: Respiratory Failure Condition: Good Clinical Impression: Adverse effect of chemotherapy - Discharge Information *PRESCRIPTION DRUG MONITORING PROGRAM REVIEWED*: Not Applicable *COPY OF PRESCRIPTION DRUG MONITORING REPORT IN PATIENT VIDHYA: Not Applicable Instructions: Managing Chemotherapy Side Effects, Adult Referrals: PCP,None [Primary Care Provider] - Forms: ED Department Discharge Additional Instructions: 1. stay well hydrated 2. Call your oncologist with any additional questions 3. Please call or return to the ER if you have any worsening symptoms Sepsis Event Note (ED) - Focused Exam Vital Signs: Vital Signs Temp Pulse Resp BP Pulse Ox 03/09/21 19:00 102 H 16 116/81 98 03/09/21 18:30 108 H 16 136/88 97 03/09/21 17:20 36.6 C 122 H 20 136/102 H 95 ED Communication - Discussed Case With (1) Discussed Case With (1): Other Provider (Discussed case with Dr. Gomez with [facility]. Feels related to chemo, not neuro involved.) - Problem List & Annotations (1) Adverse effect of chemotherapy SNOMED Code(s): 809021640 Code(s): T45.1X5A - ADVERSE EFFECT OF ANTINEOPLASTIC AND IMMUNOSUP DRUGS, IN IT Status: Acute Priority: Medium Current Visit: Yes Qualifiers: Encounter type: initial encounter Qualified Code(s): T45.1X5A - Adverse effect of antineoplastic and immunosuppressive drugs, initial encounter - Problem List Review Problem List Initiated/Reviewed/Updated: Yes - Assessment/Plan Assessment:: chemotherapy adverse effect
[2021-03-09] MEDS: Sodium Chloride 0.9% 1,000 ML IV ONE (18:50)
--- NOTE | 2021-03-09 19:04 | CR ---
[id number] RAD/RAD Chest PA or AP 1V EXAM: SINGLE VIEW CHEST. INDICATION: SHORTNESS OF BREATH COMPARISON: NO PREVIOUS SIMILAR EXAM IS AVAILABLE FINDINGS: The lungs are clear A chest port is seen. The cardiomediastinal contour is normal. IMPRESSION: NO PNEUMONIA OR EDEMA Devyn Velazco MD 03/09/21 [id number] Thank you for allowing us to participate in the care of your patient.
--- NOTE | 2021-03-09 21:02 | CT ---
[id number] CT/CT Head WO IV EXAM: CT Head WO IV CLINICAL DATA: NEUROLOGIC DEFICIT COMPARISON: No previous similar exam is available for comparison. FINDINGS: There is no mass or mass effect. There is no hemorrhage or hydrocephalus. There are no extra-axial fluid collections. There are no sites of abnormal attenuation. IMPRESSION: NO PLAIN CT EVIDENCE OF ACUTE INTRACRANIAL PROCESS. Devyn Velazco MD 03/09/21 0633 Thank you for allowing us to participate in the care of your patient.
[2021-03-09 22:58] VITALS: PULSE 93
[2021-03-09 23:10] VITALS: BP 122/78
== END 2021-03-09 21:37 | disposition home or self-care (01) ==
LOC: VM.ED 17:17
DX: R42 Dizziness and giddiness (principal); T45.1X5A Adverse effect of antineoplastic and immunosuppressive drugs, initial encounter; Z88.5 Allergy status to narcotic agent; Z91.013 Allergy to seafood
CPT/HCPCS: 70450; 71045; 80053; 83605; 83735; 83880; 84145; 84484; 85025; 85610; 85730; 93005; 96374; 96376; 99284; J0461; J7030

== ENCOUNTER 2021-09-13 17:40 | Emergency (ER) | payer MEDICARE ==
[2021-09-13] MEDS ORDERED: Sodium Chloride 0.9% 10 ML Syringe FLUSH PRN (19:01)
[2021-09-13] MEDS ORDERED: HYDROmorphone 1 MG/ML Syringe IVPUSH ONE (19:02)
[2021-09-13] MEDS ORDERED: Ondansetron 4 MG/2 ML SDV IVPUSH ONE (19:02)
[2021-09-13 19:28] LABS: PTT,PARTIAL THROMBOPLSTIN TIME 27.2 SEC (20.5-30.9)
[2021-09-13 19:30] LABS: ANION GAP 16.5 mmol/L (5-15); CHLORIDE,CL 99 mmol/L (98-107); ESTIMATED GFR 103 mL/min (>=60); SODIUM,NA 140 mmol/L (136-145)
[2021-09-13] MEDS ORDERED: Lactated Ringers 1,000 ML IV ONE ×2 (19:40→21:33)
[2021-09-13] MEDS ORDERED: oxyCODONE 5 MG Tab PO ONE (20:10)
[2021-09-13] MEDS ORDERED: Metoclopramide 10 MG/2 ML SDV IVPUSH ONE (20:38)
[2021-09-13] MEDS ORDERED: Prochlorperazine 10 MG/2 ML SDV IV ONE (21:06)
[2021-09-13] MEDS ORDERED: diphenhydrAMINE 50 MG/ML SDV IVPUSH ONE (21:06)
[2021-09-13] MEDS ORDERED: Dexamethasone 4 MG/ML SDV IVPUSH ONE (21:06)
[2021-09-13 21:49] VITALS: BP 112/64; PULSE 97
[2021-09-13] MEDS ORDERED: Take Home: Ondansetron 4 MG Tab.DIS, 5 Tab Pack PO ONE (22:00)
== END 2021-09-13 22:30 | disposition home or self-care (01) ==
LOC: VM.ED 17:40
DX: C18.9 Malignant neoplasm of colon, unspecified (principal); C79.51 Secondary malignant neoplasm of bone; R11.2 Nausea with vomiting, unspecified; Z91.013 Allergy to seafood; Z88.5 Allergy status to narcotic agent; Z88.8 Allergy status to other drugs, medicaments and biological substances
CPT/HCPCS: 72192; 80053; 85025; 85610; 85730; 96361; 96374; 96375; 99284; 99284-25; J0780; J1100; J1170; J1200; J2405; J2765; J3490; J7120; Q0162